=== PATIENT | female | born 1990 | race Caucasian/White ===

== ENCOUNTER 2022-03-28 12:00 | Outpatient (CLI) | payer BC, MEDICAID, SELFPAY ==
[2022-03-28 12:52] LABS: CRP < 0.5 mg/dL (<1.0)
[2022-03-28 13:13] LABS: Erythrocyte Sedimentation Rate 19 mm/hr (0-20)
[2022-04-08 08:37] LABS: TTG IGA AB <1.0
[2022-04-08 08:38] LABS: Gliadin AB, IgG <1.0
== END 2022-03-28 12:01 | disposition home or self-care (01) ==
LOC: ANHLAB 12:05
PROVIDERS: PCP Family Medicine; Visit Provider Nurse Practitioner
DX: F41.9 Anxiety disorder, unspecified (principal); K21.9 Gastro-esophageal reflux disease without esophagitis; K52.9 Noninfective gastroenteritis and colitis, unspecified; M35.9 Systemic involvement of connective tissue, unspecified; R10.84 Generalized abdominal pain
CPT/HCPCS: 36415; 83516; 84443; 85652; 86140; 86255

== ENCOUNTER 2022-05-09 01:30 | Day surgery (SDC) | payer BC, MEDICAID, SELFPAY ==
[2022-04-23 13:41] VITALS: BMI 28.9
[2022-05-09 09:01] VITALS: BP 120/77; PULSE 84; RESP 18; TEMP 36.1; O2SAT 100
[2022-05-09] MEDS: LACTATED RINGERS 1,000 ML 150 ML IV CONT (09:02)
--- NOTE | 2022-05-09 09:22 | P.PNAN_ITS ---
Anes - Initial Pre Proc Eval Procedure: Operation Date: 05/09/22 10:15 Proposed Procedures p Esophagogastroduodenoscopy & Colonoscopy - Madi Baeza MD Date/Time: 05/09/22 09:22 Surgeon: Madi Baeza MD Pre Op Diagnosis: abdominal pain, nausea, diarrhea Patient Data Age: 32 Gender: F Height: 1.8 m Weight: 91.9 kg Last Vital Signs Temp 97 F L 05/09/22 09:01 Pulse 84 05/09/22 09:01 Resp 18 05/09/22 09:01 BP 120/77 05/09/22 09:01 Pulse Ox 100 05/09/22 09:01 O2 Del Method Room Air 05/09/22 09:01 Allergies Allergy/AdvReac Type Severity Reaction Status Date / Time No Known Allergies Allergy Verified 05/09/22 08:59 Home Medications Medication Instructions Recorded Confirmed Type levonorgestrel 20 mcg/24 hours (8 1 device intrauterine ONCE 03/28/22 05/09/22 History yrs) 52 mg intrauterine device (Mirena) omeprazole 40 mg capsule,delayed 40 mg PO DAILY #30 caps 03/28/22 05/09/22 Rx release Patient hx anesthesia problems: none Family hx anesthesia problems: none Results Review: All pre-operative results and documents have been reviewed as part of the pre- operative evaluation. [facility] Past Medical History Medical History (Updated 03/28/22 @ 12:10 by Brandi Pearl APRN) Chronic diarrhea Connective tissue disease, undifferentiated GERD (gastroesophageal reflux disease) Nausea Obesity RUQ abdominal pain Tobacco abuse Social History Social History (Updated 03/28/22 @ 11:20 by Dariana Starks MA) Years smoked: 15 Smoking status: Current every day smoker Tobacco type: cigarettes Second hand tobacco smoke exposure: No Alcohol intake: never Substance use: never Substance use type: does not use Living arrangements: with family Gender identity (if verbalized by the patient): Female Spiritual care concerns: No Anes - Eval Final PreProcedure Day of Procedure 05/09/22 09:22 Patient weight: overweight Heart: regular rate and rhythm Lungs: clear to auscultation Airway: Mallampati scale class II Neurological: alert and oriented Last oral intake: >/= 8 hours ASA classification: II Emergent: no Anesthetic plan: proceed Anesthesia type and monitoring: general GIVS and standard monitoring Results Review: All pre-operative results and documents have been reviewed as part of the pre- operative evaluation. Informed Consent: The patient's anesthetic plan and its attendant risks and benefits were discussed with the patient/family/POA. Questions were solicited and answers provided to the satisfaction of the patient/family/POA.
--- NOTE | 2022-05-09 09:42 | PM.HPGS ---
History of Present Illness History of Present Illness Consent: Risks, benefits, and alternatives have been discussed and questions answered. Patient agrees to proceed with procedure. Chief complaint: abdominal pain, nausea, diarrhea Narrative: Mimi Allison is a 32 year old female with intermittent ruq pain and negative work up but never had scopes, also diarrhea. Better with bentyl. Review of Systems Constitutional: Constitutional: Denies headache(s) and Denies weakness Eyes: Eyes: Denies blurry vision ENT: Reports Normal hearing present, Denies headache(s) and Denies neck pain Cardiovascular: Cardiovascular: Denies chest pain and Denies dyspnea Respiratory: Respiratory: Denies dyspnea Gastrointestinal: Gastrointestinal: Reports no additional gastrointestinal complaints Genitourinary: Genitourinary: Denies dysuria Musculoskeletal: Musculoskeletal: Denies neck pain Integumentary/Breasts: Skin/Breast: Denies dry skin Neurologic: Reports Normal hearing present, Denies headache(s) and Denies weakness Psychiatric: Psychiatric: Denies anxiety Endocrine: Endocrine: Denies change in body appearance Hematologic/Lymphatic: Hematologic/Lymphatic: Denies easy bleeding Allergic/Immunologic: Allergic/Immunologic: Denies urticaria PMF Past Medical History Medical History (Updated 03/28/22 @ 12:10 by Brandi Pearl APRN) Chronic diarrhea Connective tissue disease, undifferentiated GERD (gastroesophageal reflux disease) Nausea Obesity RUQ abdominal pain Tobacco abuse Social History Social History (Updated 03/28/22 @ 11:20 by Dariana Starks MA) Years smoked: 15 Smoking status: Current every day smoker Tobacco type: cigarettes Second hand tobacco smoke exposure: No Alcohol intake: never Substance use: never Substance use type: does not use Living arrangements: with family Gender identity (if verbalized by the patient): Female Spiritual care concerns: No Meds Home Medications and Allergies Home Medications Medication Instructions Recorded Confirmed Type levonorgestrel 20 mcg/24 hours (8 1 device intrauterine ONCE 03/28/22 05/09/22 History yrs) 52 mg intrauterine device (Mirena) omeprazole 40 mg capsule,delayed 40 mg PO DAILY #30 caps 03/28/22 05/09/22 Rx release Allergies Allergy/AdvReac Type Severity Reaction Status Date / Time No Known Allergies Allergy Verified 05/09/22 08:59 Vital Signs Vital Signs - 24 hr 05/09/22 09:01 Temperature 97 F L Pulse Rate 84 Respiratory Rate 18 Blood Pressure 120/77 Pulse Oximetry 100 Oxygen Delivery Room Air Exam Const: General: comfortable and no acute distress HENMT: Face/Nose/Sinus: Normal nares present Eyes: General: appearance normal, both eyes and all related structures Neck: Neck: no JVD Resp: Auscultation: clear to auscultation bilaterally Cardio: Rate: regular rate Rhythm: regular rhythm GI: Inspection: non-distended GI Palp: Yes Soft to palpation Skin: General skin exam: normal color Neuro: General: gait normal Speech: normal speech Extrem: General: normal to inspection Psych: Mental Status: mental status grossly normal Assessment and Plan Assessment and plan (1) Chronic diarrhea: Code(s): K52.9 - Noninfective gastroenteritis and colitis, unspecified Status: Acute Assessment and Plan: colonoscopy with random bx (2) RUQ abdominal pain: Code(s): R10.11 - Right upper quadrant pain Status: Acute Assessment and Plan: egd with bx
--- NOTE | 2022-05-09 09:58 | SUR.OPER ---
EGD ENDED 952 COLON STARTED 957
[2022-05-09 10:11] VITALS: BP 101/47; PULSE 86; RESP 15; O2SAT 100
[2022-05-09 10:21] VITALS: BP 116/74; PULSE 75; RESP 16; O2SAT 99
[2022-05-09 10:31] VITALS: BP 114/87; PULSE 76; RESP 14; O2SAT 100
== END 2022-05-09 10:43 | disposition home or self-care (01) ==
PROVIDERS: PCP Family Medicine; Visit Provider Internal Medicine Gastroenterology
PROC: 0DJ08ZZ Inspection of Upper Intestinal Tract, Via Natural or Artificial Opening Endoscopic (ICD-10-PCS; CPT 43235; principal; 2022-05-09 10:15)
DX: K58.9 Irritable bowel syndrome, unspecified (principal); R19.7 Diarrhea, unspecified; K64.8 Other hemorrhoids; K29.50 Unspecified chronic gastritis without bleeding; R10.11 Right upper quadrant pain; R11.0 Nausea; K21.9 Gastro-esophageal reflux disease without esophagitis; F17.210 Nicotine dependence, cigarettes, uncomplicated
CPT/HCPCS: 45380; 43239; 88305; 88342; J2001; J2704; J7120